=== PATIENT | female | born 1985 | race Caucasian/White ===

== ENCOUNTER 2021-12-28 02:38 | Emergency (ER) | payer OTHER ==
[~2021-12-28] VITALS: Ht 167.6 cm; Wt 113.4 kg
[2021-12-28 02:40] VITALS: BP 139/70
--- NOTE | 2021-12-28 02:40 | NUR ---
ARRIVAL AMBULATED TO ROOM. ALERT AND ORIENTED X3. GAIT STEADY. ITCHING RED RASH ALL OVER BODY. HAS OPEN AREAS X2 TO LOWER RIGHT ABDOMEN THAT ARE DRAINING AND "SMELLY" ACCORDING TO PT. SHE TOOK LEVAQUIN PRESCRIBED FOR AUNT @ 2330 TONIGHT FOR THE OPEN AREAS TO ABDOMEN. THEN THE RASH APPEARED. TOOK BENADRYL 25MG PO AT HOME PRIOR TO ARRIVAL TO ER. AIRWAY OPEN. RR-18. O2 SAT 99% ON RM AIR.
[2021-12-28] MEDS ORDERED: EPINEPHrine SQ STA (03:04)
[2021-12-28] MEDS ORDERED: EPINEPHrine ONE (03:04)
[2021-12-28] MEDS ORDERED: BENADRYL IV STA (03:04)
[2021-12-28] MEDS ORDERED: SOLU-MEDROL ONE (03:04)
[2021-12-28] MEDS ORDERED: PEPCID IV STA (03:04)
[2021-12-28] MEDS ORDERED: SOLU-MEDROL IV STA (03:04)
[2021-12-28] MEDS ORDERED: BENADRYL ONE (03:05)
[2021-12-28] MEDS ORDERED: PEPCID IV ONE (03:06)
[2021-12-28] MEDS ORDERED: LIDOCAINE 1% VIAL ONE (03:07)
--- NOTE | 2021-12-28 03:16 | ER.PDOC ---
General Chief Complaint: Skin Rash/Abscess Stated Complaint: RASH Time seen by MD: 03:09 Source: patient Exam Limitations: no limitations History of Present Illness Initial Comments Patient complains of a rash which is generalized for the last few hours after taking Levaquin last night for draining abscesses on the right lower abdominal wall and inguinal area. Levaquin was prescribed for her Aunt. No fever or chills. Patient took 25mg of Benadryl prior to coming to the ED. No shortness of breath and no facial swelling. Timing/Duration: 1-3 hours Severity: moderate Location: generalized Quality: itchy, burning Identified Cause: yes Exposure: antibiotic Past Medical History Medical History: other Surgical History: Family History Significant Family History: no pertinent family hx Social History Smoking: non-smoker Alcohol Use: occassionally Drug Use: none Constitutional: no symptoms reported EENTM: no symptoms reported Respiratory: no symptoms reported Cardiovascular: no symptoms reported Gastrointestinal: no symptoms reported Skin: see HPI All Other Systems: Reviewed and Negative Physical Exam General Appearance: alert, no distress Skin: abscess (right lower abdominal wasll and inguinal area), skin rash (generalized) Character: urticarial With: tenderness (abscesses), swelling Extremities: non-tender, nml ROM, no edema Neck: trachea midline, no swelling Respiratory: no resp. distress, breath sounds nml CVS: reg. rate & rhythm, heart sounds nml Abdomen: no organomegaly NEURO/PSYCH: oriented x 3, CN's nml as tested, motor nml, sensation nml, mood/affect nml Incision and Drainage Incision and Drainage : Site: abdominal wall Blade Size: 11 I & D Procedure: betadine prep, probe/break up loculation, irrigated cavity w/saline, culture/gram stain Results/Orders Results/Orders Orders - JE MARTINEZ MD Epinephrine (Epinephrine) (12/28/21 03:04) Methylprednisolone Sod Succ (Solu-Medrol (12/28/21 03:04) Diphenhydramine Hcl (Benadryl) (12/28/21 03:05) Famotidine/Pf (Pepcid) (12/28/21 03:06) Lidocaine Hcl (Lidocaine 1% Vial) (12/28/21 03:07) Wound Culture & Gram Stain (12/28/21 03:04) Famotidine/Pf (Pepcid) (12/28/21 03:04) Methylprednisolone Sod Succ (Solu-Medrol (12/28/21 03:04) Epinephrine (Epinephrine) (12/28/21 03:04) Diphenhydramine Hcl (Benadryl) (12/28/21 03:04) Vital Signs Date Time Temp Pulse Resp B/P (MAP) Pulse Ox O2 Delivery O2 Flow Rate FiO2 12/28/21 02:40 97.9 84 18 139/70 (93) 99 Room Air* 0 21 12/28/21 02:40 97.9 84 18 12/28/21 02:40 97.4 84 18 99 Administered Medications Medications (Trade) Dose Ordered Sig/Jayda Route PRN Reason Start Time Stop Time Status Last Admin Dose Admin Diphenhydramine HCl (Benadryl) 25 mg STAT STAT IV 12/28/21 03:04 12/28/21 03:09 DC 12/28/21 03:25 25 MG Epinephrine HCl (EPINEPHrine) 0.3 mg STAT STAT SQ 12/28/21 03:04 12/28/21 03:09 DC 12/28/21 03:24 0.3 MG Famotidine (Pepcid) 20 mg STAT STAT IV 12/28/21 03:04 12/28/21 03:09 DC 12/28/21 03:25 20 MG Methylprednisolone Sodium Succinate (Solu-Medrol) 125 mg STAT STAT IV 12/28/21 03:04 12/28/21 03:09 DC 12/28/21 03:26 125 MG Progress Progress Patient received additional 25 mg of Benadryl, Pepcid, Solu-Medrol and EpiPen. Rash much better and almost completely resolved. Patient has 2 draining abscesses on the right lower abdominal wall and inguinal region. She refused incision and drainage. She told me that she will squeeze the abscesses by herself and get out all the pus. ER DEPART Departure Time of Disposition: 03:35 Disposition: 01 HOME / SELF CARE / HOMELESS Impression: Primary Impression: Acute allergic reaction Additional Impressions: Urticaria Abscess Condition: Improved Referrals: PCP,UNKNOWN (PCP) PRIMARY CARE PROVIDER Additional Instructions: Bactrim DS Benadryl Pepcid Prednisone Follow-up PCP in 2 to 3 days Return to ED if worsening or concerns Duration or Time Spent with Pa: 30 min Problem Qualifiers Primary Impression: Acute allergic reaction Encounter type: initial encounter Qualified Codes: T78.40XA - Allergy, unspecified, initial encounter JE MARTINEZ MD December 28, 2021 03:16
--- NOTE | 2021-12-28 03:20 | NUR ---
ABSCESS DR. WOOTEN ATTEMPTED TO DRAIN ABSCESS. AFTER HE CLEANED SITE, PT REFUSED TO HAVE ABSCESS DRAINED TO RIGHT LOWER ABDOMEN. PT STATED, "I WILL JUST DRAIN THE ABSCESS MYSELF AT HOME." DR. WOOTEN STOPPED PROCEDURE AND EXPLAINED HE WOULD PRESCRIBE ANTIBIOTICS FOR ABSCESS FOR 10DAYS AND OTHER MEDICATIONS FOR THE RASH FOR 3 DAYS.
== END 2021-12-28 03:44 | disposition home or self-care (01) ==
LOC: ER 02:38
DX: T78.40XA Allergy, unspecified, initial encounter (principal); L50.0 Allergic urticaria; L02.211 Cutaneous abscess of abdominal wall; F10.20 Alcohol dependence, uncomplicated; X58.XXXA Exposure to other specified factors, initial encounter
CPT/HCPCS: 10060; 96372; 96374; 96375; 99284; J0171; J1200; J2001; J2930; J3490; 10061